=== PATIENT | male | born 1960 | race Caucasian/White ===

== ENCOUNTER 2021-11-14 11:10 | Emergency (ER) | payer MEDICARE, MEDICAID, SELFPAY ==
[2021-11-14 11:13] VITALS: BP 142/76; PULSE 90; O2SAT 99
[2021-11-14 11:32] VITALS: BP 167/97; PULSE 82; RESP 16; TEMP 37.1; O2SAT 97; BMI 47.9
[2021-11-14 11:54] LABS: IDNOW Serial# 08D9AD1C
[2021-11-14 11:55] LABS: COVID-19 Test Positive (Negative)
--- NOTE | 2021-11-14 12:01 | ED_ITS ---
HPI - General Adult General Chief complaint: Upper Respiratory Symptoms Stated complaint: COVID SYMPTOMS,COUGH Time Seen by Provider: 11/14/21 12:00 Source: patient Mode of arrival: ambulatory Limitations: no limitations History of Present Illness HPI narrative: 61 y/o male with history of GERD, HTN, HLD, obesity, depression who presents to the ER with dry cough, chills, headache and body aches for the last 2 days. He is not vaccinated for COVID-19. He has no known exposures or close contacts. He denies any shortness of breath or difficulty breathing. He has no chest pain. He does report some abdominal distention that is new. He has no nausea, vomiting, diarrhea, constipation. MD complaint: URI symptoms and abdominal distension. Onset (ago): day(s) (2) Location: back and abdomen Radiation: non-radiation Severity: moderate Quality: aching Pain Consistency: intermittent Relieving factors: none Exacerbating factors: none Associated symptoms: cough, headaches, loss of appetite, malaise and weakness Treatments prior to arrival: none Related Data Previous Rx's Medication Instructions Recorded amlodipine 5 mg tablet 5 mg PO DAILY #90 tab 07/04/21 Allergies Allergy/AdvReac Type Severity Reaction Status Date / Time lisinopril Allergy Unknown cough Verified 10/31/20 07:37 losartan Allergy Unknown cough Verified 10/31/20 07:37 penicillin V Allergy Unknown seizures Verified 10/31/20 07:37 Penicillins Allergy Unknown SEIZURES Verified 10/31/20 07:37 Review of Systems Review of Systems: Constitutional: No Fever, + Chills ENT/Mouth: + sore throat, No Rhinorrhea, No Swallowing Difficulty Cardiovascular: No Chest Pain, No SOB Respiratory: + Cough, No Sputum, No Wheezing, No dyspnea Gastrointestinal: No Nausea, No Vomiting, No Diarrhea, No abdominal Pain Musculoskeletal: + joint pain, + Myalgias Skin: No Skin Lesions, No rash Neuro: + Weakness, No Numbness, No Dizziness, + Headache Heme/Lymph: No Lymphadenopathy PMFSH Past Medical History Medical History (Updated 11/14/21 @ 12:02 by CATHY Barney) GERD (gastroesophageal reflux disease) Hypercholesterolemia Hypertension Obesity Surgical History (Updated 10/31/20 @ 07:37 by JOSEFA Genao) No pertinent past surgical history Family History Family History (Updated 10/31/20 @ 07:51 by Brandy Negron, [facility]) Father Medical history unknown Mother Diabetes Brother In good health Sister In good health Son In good health Daughter In good health Social History Social History Advance Directives: No Advance Directives Information Provided: No Physical Exam Vital Signs: Vital Signs: Last Vital Signs Temp 98.7 F 11/14/21 11:32 Pulse 82 11/14/21 11:32 Resp 16 11/14/21 11:32 BP 167/97 H 11/14/21 11:32 Pulse Ox 97 11/14/21 11:32 BMI result Body Mass Index 47.9 Appearance: Alert. Oriented X3. No acute distress. Eyes: Normal inspection ENT: Pharynx normal. Moderate posterior pharyngeal erythema without tonsillar exudate or swelling Neck: Normal inspection. Neck supple. CVS: Normal heart rate and rhythm. Pulses normal. Respiratory: No respiratory distress. Breath sounds normal. Abdomen: Softly distended and nontender. +BS x4 Skin: Skin warm and dry. Normal skin color. Normal skin turgor. No rashes. Extremities: No lower extremity edema. No calf tenderness. Neuro: Oriented X 3. Grossly normal, nonfocal ambulates with steady gait. Course Course Course Narrative: 61-year-old male with a history of obesity, HTN, HLD, GERD, depression presenting with dry cough, chills, body aches, headache. He is found to be COVID positive. On arrival he is saturating 97% on room air and afebrile. No respiratory distress and lungs are clear. Patient counseled on his diagnosis and management. Encouraged follow-up with his doctor and closely monitor symptoms at home. Strict return precautions were discussed and he is stable for [place] home for self quarantine and monitoring at home. Medical Decision Making Lab Data Labs: Lab Results 11/14/21 Range/Units 11:37 COVID-19 (ARNOLDO) Positive A (Negative) COVID-19 Clin Com See Note Discharge Plan Discharge Clinical Impression: COVID-19 Patient Disposition: Home, Self-Care Instructions: Covid-19 Viral Syndrome and Novel Coronavirus (ED) Hey/Ath Additional Instructions: You were found to be COVID-19 POSITIVE today. Your oxygen levels were normal. Rest. Drink plenty of fluids. Do not go out in public for the next 7 days. Take over the counter cold/flu medications as needed for your symptoms. Take Tylenol and/or Motrin as needed for fevers and body aches. Follow up with your doctor this week. If you develop new or worsening symptoms call 911 or come back to the ER for further evaluation. Prescriptions: No Action amlodipine 5 mg tablet 5 mg PO DAILY Qty: 90 RF: 2 Interventions: ED Discharge Assessment Last Done: 11/14/21 12:18 Discharge Date/Time: 11/14/21 12:21
== END 2021-11-14 12:21 | disposition home or self-care (01) ==
PROVIDERS: Emergency Provider Emergency Medicine; PCP Internal Medicine
DX: U07.1 COVID-19 (principal); R51.9 Headache, unspecified; R05.9 Cough, unspecified; M79.10 Myalgia, unspecified site; Z79.899 Other long term (current) drug therapy
CPT/HCPCS: 87635; 99283

== ENCOUNTER 2021-11-19 22:06 | Emergency (ER) | payer MEDICARE, MEDICAID, SELFPAY ==
--- NOTE | ~2021-11-19 | XR_ITS ---
EXAMINATION: XR CHEST CLINICAL INFORMATION: Covid positive COMPARISON: 08/29/2015 TECHNIQUE: Frontal view of the chest was obtained. FINDINGS: The lungs are well expanded. Minimal hazy opacity of the left mid to lower lung. No pleural effusion or pneumothorax. The cardiomediastinal silhouette is within normal limits. No acute osseous abnormality. XR/XR chest 1V IMPRESSION: Minimal hazy opacity of the left mid to lower lung could be infectious or inflammatory.
[2021-11-19 22:21] VITALS: BP 151/94; PULSE 101; RESP 20; TEMP 38.5; O2SAT 96
[2021-11-19 22:29] VITALS: BP 151/64; BP 158/68; PULSE 106; PULSE 99; RESP 20; TEMP 38.5; O2SAT 96; BMI 46.3
--- NOTE | 2021-11-19 22:30 | ED_ITS ---
HPI - General Adult General Chief complaint: General Medical Stated complaint: ABD PAIN. COVID + Time Seen by Provider: 11/19/21 22:30 Source: patient Mode of arrival: EMS Limitations: no limitations History of Present Illness HPI narrative: Patient not vaccinated against COVID was seen here on 11/14 for cough for 2 - 3 days tested positive for COVID comes here for body aches fever, diffuse abdominal pain with nausea worried that he lives alone saturating 96% on room air having some dry cough no vomiting Related Data Previous Rx's Medication Instructions Recorded amlodipine 5 mg tablet 5 mg PO DAILY #90 tab 07/04/21 albuterol sulfate 90 mcg/actuation 2 puff INHALATION Q4-6H PRN #8.5 g 11/19/21 aerosol inhaler (ProAir HFA) codeine 10 mg-guaifenesin 100 mg/5 10 ml PO Q6-8H PRN #237 ml NS 11/19/21 mL oral liquid dexamethasone 6 mg tablet 6 mg PO DAILY #7 tab 11/19/21 (Decadron) Allergies Allergy/AdvReac Type Severity Reaction Status Date / Time lisinopril Allergy Unknown cough Verified 10/31/20 07:37 losartan Allergy Unknown cough Verified 10/31/20 07:37 penicillin V Allergy Unknown seizures Verified 10/31/20 07:37 Penicillins Allergy Unknown SEIZURES Verified 10/31/20 07:37 Review of Systems Review of Systems: Yes all other systems are reviewed and are negative [facility] Past Medical History Medical History GERD (gastroesophageal reflux disease) Hypercholesterolemia Hypertension Obesity Surgical History No pertinent past surgical history Family History Family History Father Medical history unknown Mother Diabetes Brother In good health Sister In good health Son In good health Daughter In good health Social History Social History Advance Directives: No Advance Directives Information Provided: Yes Physical Exam Vital Signs: Vital Signs: Last Vital Signs Temp 101.3 F H 11/19/21 22:29 Pulse 105 H 11/19/21 22:36 Resp 20 11/19/21 22:29 BP 151/64 H 11/19/21 22:29 Pulse Ox 96 11/19/21 22:29 BMI result Body Mass Index 46.3 Appearance: Alert. Oriented X3. No acute distress. ENT: Pharynx normal. Oral Mucosa moist Neck: Normal inspection. Neck supple. CVS: Normal heart rate and rhythm. Pulses normal. Respiratory: No respiratory distress. Equal air entry bilateral, no wheezing/rales/rhonchi Abdomen: Soft and nontender. Bowel sounds are present, no mass palpable, Skin: Skin warm and dry. Normal skin color. Normal skin turgor. Extremities: No lower extremity edema. No calf tenderness Neuro: Oriented X 3. Medical Decision Making MDM Narrative Medical decision making narrative: Patient with COVID stable labs nonfocal exam discharge patient home. Saturating 96-98% on room air Lab Data Lab results reviewed: Yes I reviewed the patient's lab results. Result diagrams: 11/19/21 23:10 11/19/21 23:10 Labs: Lab Results 11/19/21 11/19/21 Range/Units 23:10 23:10 WBC 4.8 (4.8-10.8) X10*3/uL RBC 5.76 (4.60-5.80) X10*6/uL Hgb 14.1 (14.0-18.0) g/dl Hct 42.7 (42.0-52.0) % MCV 74.1 L (80.0-98.0) fL MCH 24.5 L (27.0-33.0) pg MCHC 33.0 (31.0-36.0) g/dl RDW 15.1 (11.0-16.0) % Plt Count 217 (160-400) X10*3/uL MPV 9.4 (9.4-12.4) fL Immature Gran % (Auto) 0.2 (0.0-0.4) % Neut % (Auto) 65.9 (45-73) % Lymph % (Auto) 24.4 (20-40) % [place] % (Auto) 9.3 (2-11) % Eos % (Auto) 0.2 (0-4) % Baso % (Auto) 0.0 (0-2) % Lymph # (Auto) 1.2 (1.2-4.9) X10*3/uL [place] # (Auto) 0.5 (0.1-1.2) X10*3/uL Eos # (Auto) 0.0 (0.0-0.4) X10*3/uL Baso # (Auto) 0.0 (0.0-0.2) X10*3/uL Abs Immat Gran (auto) 0.01 (0.00-0.03) X10*3/uL Absolute Neuts (auto) 3.2 (2.0-8.3) x10*3/uL Absolute Nucleated RBC 0.000 (0.0-0.012) X10*3/uL Nucleated RBC % (auto) 0.0 (0.0-0.2) /100WBC Sodium 137 (135-145) mmol/L Potassium 3.7 (3.3-5.1) mmol/L Chloride 105 (96-108) mmol/L Carbon Dioxide 21 L (22-29) mmol/L Anion Gap 15 (12-20) BUN 8 L (9-16) mg/dL Creatinine 0.83 (0.5-1.4) mg/dL Estim Creat Clear Calc 106.7 Estimated GFR > 60 Random Glucose 145 H (60-115) mg/dL Calcium 8.2 L (8.4-10.2) mg/dL Total Bilirubin 0.5 (0.0-1.0) mg/dL AST 53 H (5-37) U/L ALT 61 H (0-40) U/L Alkaline Phosphatase 51 (39-117) U/L Total Protein 6.4 L (6.5-8.0) g/dL Albumin 3.8 (3.5-5.0) g/dL Lipase 26 (8-78) U/L Discharge Plan Discharge Clinical Impression: COVID-19 Patient Disposition: Home, Self-Care Instructions: COVID-19 (Coronavirus Disease 2019) (ED) Additional Instructions: Drink plenty of fluids Cough syrup and inhaler as advised Decadron as advised Follow-up with PCP or report to ED if not feeling better/shortness of breath Prescriptions: New dexamethasone [Decadron] 6 mg tablet 6 mg PO DAILY Qty: 7 RF: 0 codeine-guaifenesin 10-100 mg/5 mL liquid 10 ml PO Q6-8H PRN (Reason: cough) Qty: 237 RF: 0 albuterol sulfate [ProAir HFA] 90 mcg/actuation HFA aerosol inhaler 2 puff inhalation Q4-6H PRN (Reason: Wheezing) Qty: 8.5 RF: 0 No Action amlodipine 5 mg tablet 5 mg PO DAILY Qty: 90 RF: 2
[2021-11-19 22:36] VITALS: PULSE 105; O2SAT 95
[2021-11-19] MEDS: Albuterol Sulfate 90 MCG 8 GM INHALER 4 PUFF INHALE (22:43)
[2021-11-19] MEDS: guaiFEN/Codeine SF 200/20/10ML 10 ML LIQUID PO (22:45)
[2021-11-19] MEDS: Acetaminophen 325 MG TABLET 650 MG PO (22:46)
[2021-11-19] MEDS: dexAMETHasone 6 MG TABLET PO (22:46)
[2021-11-19 23:14] LABS: MANUAL DIFF FLAG NO
[2021-11-19 23:16] LABS: Eosinophils Percent Auto 0.2 % (0-4); Hematocrit 42.7 % (42.0-52.0); Hemoglobin 14.1 g/dl (14.0-18.0); Imm Gran Abs Auto 0.01 X10*3/uL (0.00-0.03); Imm Gran Pct Auto 0.2 % (0.0-0.4); Lymphocytes Absolute Auto 1.2 X10*3/uL (1.2-4.9); Lymphocytes Percent Auto 24.4 % (20-40); Mean Corpuscular Hemoglobin 24.5 pg (27.0-33.0); Mean Corpuscular Volume 74.1 fL (80.0-98.0); Mean Platelet Volume 9.4 fL (9.4-12.4); Monocytes Absolute Auto 0.5 X10*3/uL (0.1-1.2); Monocytes Percent Auto 9.3 % (2-11); Neutrophils Absolute Auto 3.2 x10*3/uL (2.0-8.3); Neutrophils Percent Auto 65.9 % (45-73); Platelet Count 217 X10*3/uL (160-400); Red Blood Count 5.76 X10*6/uL (4.60-5.80); Red Cell Distribution Width 15.1 % (11.0-16.0); White Blood Count 4.8 X10*3/uL (4.8-10.8)
[2021-11-19 23:36] LABS: Alanine Aminotransferase 61 U/L (0-40); Albumin Level 3.8 g/dL (3.5-5.0); Alkaline Phosphatase 51 U/L (39-117); Anion Gap 15 (12-20); Aspartate Amino Transferase 53 U/L (5-37); Bilirubin Total 0.5 mg/dL (0.0-1.0); Blood Urea Nitrogen 8 mg/dL (9-16); Calcium 8.2 mg/dL (8.4-10.2); Carbon Dioxide 21 mmol/L (22-29); Chloride 105 mmol/L (96-108); Creatinine Clr Calc Pharmacy 106.7; Estimated Glomerular Filt Rate > 60; Glucose Random 145 mg/dL (60-115); Lipase 26 U/L (8-78); Potassium 3.7 mmol/L (3.3-5.1); Sodium 137 mmol/L (135-145); Total Protein 6.4 g/dL (6.5-8.0)
[2021-11-20] MEDS: Ondansetron ODT 4 MG TAB.RAPDIS TRANSLINGU (00:49)
== END 2021-11-20 00:49 | disposition home or self-care (01) ==
PROVIDERS: Emergency Provider Internal Medicine
DX: U07.1 COVID-19 (principal); R10.9 Unspecified abdominal pain; Z79.899 Other long term (current) drug therapy
CPT/HCPCS: 36415; 71045; 80053; 83690; 85025; 94640; 94664; 99284; J8540

== ENCOUNTER 2023-10-26 08:45 | Emergency (ER) | payer MEDICARE, MEDICAID, SELFPAY ==
--- NOTE | ~2023-10-26 | XR_ITS ---
EXAMINATION: XR HIP, LEFT , AP pelvis CLINICAL INFORMATION: Pain no trauma COMPARISON: None available at the time of this dictation. TECHNIQUE: Frontal and lateral views of the hip acquired. , AP pelvis FINDINGS: There is no evidence of acute fracture or dislocation. There are subtle heterogeneous sclerotic changes involving the pubic rami, femoral head and trochanters bilaterally, although could be asymmetric bone demineralization, cannot rule out possibility of diffuse sclerotic bone metastasis. There are mild degenerative arthritic changes of the hip evident by sclerotic changes of the acetabular roof and narrowing of the joint space. Mild degenerative changes of the symphysis pubis. Mild degenerative changes of the SI joints. Adjacent pubic rami are intact. Surrounding soft tissues are unremarkable. XR/XR hip LT w PEL1V IMPRESSION: There are subtle heterogeneous sclerotic changes involving the pubic rami, femoral head and trochanters bilaterally, although could be asymmetric bone demineralization, cannot rule out possibility of diffuse sclerotic bone metastasis. Consider correlation with follow-up bone scan bone scan or MRI.
--- NOTE | 2023-10-26 08:52 | ED.GENADULT ---
HPI - General Adult General Chief complaint: Extremity Injury, Lower Stated complaint: L LEG PAIN Time Seen by Provider: 10/26/23 08:46 Source: patient and EMS Mode of arrival: EMS Limitations: no limitations History of Present Illness HPI narrative: 63-year-old male with a history of obesity, hypertension, hyperlipidemia presents the ER with complaints of left hip pain x5 days. No injury or trauma. Patient reports intermittent chronic pain for many years has had cortisone injections in the past. He denies any radiation of pain. No numbness, tingling or weakness of the leg. Taking naproxen at home with continued pain Related Data Previous Rx's Medication Instructions Recorded meloxicam 15 mg tablet 15 mg PO DAILY #14 tabs 12/19/22 doxycycline hyclate 100 mg tablet 100 mg PO BID 10 days #20 tabs 01/02/23 hydrocortisone-acetic acid 1 %-2 % 4 drp otic (ear) right TID 7 days 01/02/23 ear drops #10 mL albuterol sulfate 90 mcg/actuation 2 puff PO Q4-6H PRN for wheezing 07/24/23 aerosol inhaler (Ventolin HFA) #18 ea amlodipine 5 mg tablet 5 mg PO DAILY #30 tabs 10/11/23 cyclobenzaprine 10 mg tablet 10 mg PO TID PRN muscle spasm #15 10/26/23 tabs ibuprofen 600 mg tablet 600 mg PO Q8H PRN pain #30 tabs 10/26/23 lidocaine 5 % topical patch 1 patch topical DAILY #15 ea 10/26/23 (Lidoderm) Allergies Allergy/AdvReac Type Severity Reaction Status Date / Time lisinopril Allergy Unknown cough Verified 01/02/23 10:42 losartan Allergy Unknown cough Verified 01/02/23 10:42 penicillin V Allergy Unknown seizures Verified 01/02/23 10:42 Penicillins Allergy Unknown SEIZURES Verified 01/02/23 10:42 Review of Systems Review of Systems: Yes all other systems are reviewed and are negative Constitutional: Constitutional: Reports no additional constitutional complaints, Denies body ache(s), Denies chills, Denies fever(s), Denies headache(s) and Denies weakness Eyes: Eyes: Reports no additional eye complaints and Denies change in vision ENT: Reports system reviewed and no additional complaints, except as documented, Denies dizziness, Denies headache(s), Denies nasal congestion, Denies nasal discharge and Denies neck pain Cardiovascular: Cardiovascular: Reports no additional cardiovascular complaints, Denies chest pain, Denies leg edema and Denies dyspnea Respiratory: Respiratory: Reports no additional respiratory complaints, Denies cough and Denies dyspnea Gastrointestinal: Gastrointestinal: Reports no additional gastrointestinal complaints, Denies abdominal pain, Denies diarrhea, Denies nausea and Denies vomiting Genitourinary: Genitourinary: Denies urinary incontinence Musculoskeletal: Musculoskeletal: Reports no additional musculoskeletal complaints, Denies back pain, Reports arthralgias, Denies joint swelling, Denies limited range of motion, Denies neck pain, Denies numbness and Denies tingling Integumentary/Breasts: Skin/Breast: Reports system reviewed and no additional complaints, except as docu and Denies rash Neurologic: Reports system reviewed and no additional complaints, except as documented, Denies Abnormal speech present, Denies dizziness, Denies headache(s), Denies numbness, Denies tingling and Denies weakness PMFSH Past Medical History Attestation statement: The following information was validated with the patient. Source: old records reviewed and nursing notes reviewed Medical History GERD (gastroesophageal reflux disease) Hypertension Obesity Surgical History No pertinent past surgical history Family History Family History Father Medical history unknown Mother Diabetes Brother In good health Substance abuse Bipolar 1 disorder Sister In good health Son In good health Daughter In good health Social History Social History Housing: Apartment Alcohol intake: never Patient Tobacco Use Status: Never used Tobacco e-Cigarette/Vaping Use: Never Used Second Hand Smoke Exposure: No Advance Directives: No Advance Directives Information Provided: No service: No Current occupational status: employed Cognitive needs: No Hearing needs: No Vision needs: No Physical Exam ED Vital Signs: Vital Signs - 24 hr 10/26/23 08:56 Temperature 98.3 F Pulse Rate 93 Respiratory Rate 18 Blood Pressure 165/81 H Pulse Oximetry 96 Oxygen Delivery Method Room Air BMI result Body Mass Index 48.9 Const General: cooperative, healthy appearing, comfortable and no acute distress Orientation/consciousness: patient oriented x3 Limitations: no limitations HENMT Head: Yes normal to inspection Ears: hearing grossly normal bilaterally General nose exam: Normal external nose present Face and sinus: Yes normal facial exam Mouth: Normal oral and palatal mucosa present Throat: Yes posterior oropharynx normal Eyes General: appearance normal, both eyes and all related structures Pupils: Equal, round and reactive pupils present Neck Neck: Yes normal visual inspection Chest Chest palpation & inspection: normal inspection of the chest Resp Effort & Inspection: normal respiratory effort Auscultation: clear to auscultation bilaterally Cardio Rate: regular rate Rhythm: regular rhythm Peripheral pulses: Peripheral pulses 2+ throughout GI Inspection: Yes normal to inspection Palpation (GI): Soft to palpation and nontender Auscultation: normal bowel sounds Back/Spine/Pelvis Thoracic/Lumbar Spine: thoracic and lumbar spine normal to inspection Skin General skin exam: no rashes or lesions noted Neuro General: patient oriented x3, no focal motor deficits and normal sensation to monofilament Cranial nerves: Yes Equal, round and reactive pupils present Cognition (Neuro): normal cognition Speech: No Abnormal speech present Gait exam (Neuro): Normal gait present Motor exam (neuro): 5/5 motor strength present throughout Extrem Other: Tenderness to the left lateral hip and posterior hip with no obvious shortening, rotation or deformity. Normal passive and active range of motion. Normal DP and PT pulses. Normal sensation distally. General: Yes normal to inspection Course Course Course Narrative: X-ray shows IMPRESSION: There are subtle heterogeneous sclerotic changes involving the pubic rami, femoral head and trochanters bilaterally, although could be asymmetric bone demineralization, cannot rule out possibility of diffuse sclerotic bone metastasis. Consider correlation with follow-up bone scan bone scan or MRI. Reviewed findings with Dr Mitchell (PCP). He will follow-up with the patient as an outpatient. Pain is improved with Toradol IM. Will send home with analgesia. Medications Administered Discontinued Medications Generic Name Dose Route Start Last Admin Trade Name Freq PRN Reason Stop Dose Admin Ketorolac Tromethamine 30 mg 10/26/23 09:06 10/26/23 09:23 Ketorolac Tromethamine 30 Mg/Ml Vial IM 10/26/23 09:07 30 mg ONCE ONE Administration Medical Decision Making Medical Decision Making [facility] Narrative: 63-year-old male with a history of obesity, hypertension, hyperlipidemia presents the ER with complaints of left hip pain x5 days.? No injury or trauma.? Patient reports intermittent chronic pain for many years has had cortisone injections in the past.? He denies any radiation of pain.? No numbness, tingling or weakness of the leg.? Taking naproxen at home with continued pain Tenderness to the left lateral hip and posterior hip with no obvious shortening, rotation or deformity.? Normal passive and active range of motion.? Normal DP and PT pulses.? Normal sensation distally. Will check x-rays, provide analgesia Differential Diagnosis Differential Diagnoses: The differential diagnosis associated with the presentation includes Bursitis, arthritis, osteoarthritis Low concern for septic arthritis, fracture, dislocation Admission/Observation Consideration of admission/observation: Escalation of care including admission/observation considered Pain improved with IM Toradol. Patient is ambulatory with a steady gait. No need for further emergent imaging and or admission Consult Healthcare Provider Management of the patient was discussed with: Primary Care Provider [phone]-call out to Dr MITCHELL. [phone]-Call back from Dr MITCHELL. Reviewed findings on the x-ray. He will follow-up with the patient closely outpatient Independent Interpretation I performed an independent interpretation of an: Plain X-Ray Interpretation: I independently reviewed the x-ray and agree with the radiology report Radiology Impression Discussion of test interpretation with radiology: I have reviewed the radiologist's reading. Radiologist Impression: [place] [id number] XRay Report Signed Patient: Jorge Worthington MR#: [id number] : 1960 Acct:[id number] Age/Sex: 63 / M ADM Date: 10/26/23 Loc: HO.ED Attending Dr: Ordering Physician: Bonnie Fierro NP Date of Service: 10/26/23 Procedure(s): XR hip LT w PEL1V Accession Number(s): [id number] cc: Bonnie Fierro NP~ EXAMINATION: XR HIP, LEFT , AP pelvis CLINICAL INFORMATION: Pain no trauma COMPARISON: None available at the time of this dictation. TECHNIQUE: Frontal and lateral views of the hip acquired. , AP pelvis FINDINGS: There is no evidence of acute fracture or dislocation. There are subtle heterogeneous sclerotic changes involving the pubic rami, femoral head and trochanters bilaterally, although could be asymmetric bone demineralization, cannot rule out possibility of diffuse sclerotic bone metastasis. There are mild degenerative arthritic changes of the hip evident by sclerotic changes of the acetabular roof and narrowing of the joint space. Mild degenerative changes of the symphysis pubis. Mild degenerative changes of the SI joints. Adjacent pubic rami are intact. Surrounding soft tissues are unremarkable. XR/XR hip LT w PEL1V IMPRESSION: There are subtle heterogeneous sclerotic changes involving the pubic rami, femoral head and trochanters bilaterally, although could be asymmetric bone demineralization, cannot rule out possibility of diffuse sclerotic bone metastasis. Consider correlation with follow-up bone scan bone scan or MRI. Independent Historian Clinical information obtained from an independent historian. History obtained from or confirmed by: EMS Discharge Plan Discharge Clinical Impression: Chronic hip pain Patient Disposition: Home, Self-Care Instructions: Hip Pain (ED) Additional Instructions: Your x-ray of your hip shows sclerotic changes which means that you need close follow-up outpatient with your PCP for additional imaging. We spoke to Dr MITCHELL. Please call his office on Saturday to make an appointment. Take the medications as prescribed Prescriptions: New ibuprofen 600 mg tablet 600 mg PO Q8H PRN (Reason: pain) Qty: 30 0RF cyclobenzaprine 10 mg tablet 10 mg PO TID PRN (Reason: muscle spasm) Qty: 15 0RF lidocaine [Lidoderm] 5 % adhesive patch,medicated 1 patch topical DAILY Qty: 15 0RF Rx Instructions: leave on most painful area for up to 12 hrs No Action albuterol sulfate [Ventolin HFA] 90 mcg/actuation HFA aerosol inhaler 2 puff PO Q4-6H PRN (Reason: for wheezing) Qty: 18 5RF amlodipine 5 mg tablet 5 mg PO DAILY Qty: 30 0RF meloxicam 15 mg tablet 15 mg PO DAILY Qty: 14 0RF doxycycline hyclate 100 mg tablet 100 mg PO BID 10 Days Qty: 20 0RF hydrocortisone-acetic acid 1-2 % drops 4 drp otic (ear) right TID 7 Days Qty: 10 0RF Referrals: Po,Dav Robles MD [Primary Care Provider] - 5 days Discharge Date/Time: 10/26/23 11:09
[2023-10-26 08:56] VITALS: BP 150/94; BP 165/81; PULSE 83; PULSE 93; RESP 18; TEMP 36.8; O2SAT 94; O2SAT 96; BMI 48.9
[2023-10-26] MEDS: Ketorolac Tromethamine 30 MG/ML VIAL IM (09:23)
== END 2023-10-26 11:09 | disposition home or self-care (01) ==
PROVIDERS: Emergency Provider Student in an Organized Health Care Education/Training Program; PCP Internal Medicine
DX: M25.552 Pain in left hip (principal)
CPT/HCPCS: 73502; 96372; 99284; J1885

== ENCOUNTER 2024-10-06 06:09 | Emergency (ER) | payer MEDICARE, MEDICAID, SELFPAY ==
--- NOTE | 2024-10-06 | ECG_ITS ---
Test Reason : WEAKNESS Blood Pressure : / mmHG Vent. Rate : 085 BPM Atrial Rate : 085 BPM P-R Int : 142 ms QRS Dur : 084 ms QT Int : 370 ms P-R-T Axes : 037 -68 026 degrees QTc Int : 440 ms Normal sinus rhythm Left axis deviation Abnormal ECG When compared with ECG of 29-AUG-2015 09:26, No significant change was found Referred By: Generic ED Physician Electronically Signed By:Kei Burgos
[2024-10-06 06:12] VITALS: BP 162/90; PULSE 88; O2SAT 99
[2024-10-06 06:30] VITALS: BP 154/75; PULSE 90; RESP 20; TEMP 36.8; O2SAT 97; BMI 47.5
[2024-10-06 06:58] LABS: Basophils Absolute Auto 0.1 X10*3/uL (0.0-0.2); Eosinophils Absolute Auto 0.3 X10*3/uL (0.0-0.4); Eosinophils Percent Auto 3.6 % (0-4); Hematocrit 47.1 % (42.0-52.0); Hemoglobin 15.7 g/dl (14.0-18.0); Imm Gran Abs Auto 0.04 X10*3/uL (0.00-0.03); Imm Gran Pct Auto 0.5 % (0.0-0.4); Lymphocytes Absolute Auto 1.5 X10*3/uL (1.2-4.9); Lymphocytes Percent Auto 18.5 % (20-40); MANUAL DIFF FLAG NO; Mean Corpuscular HGB Conc 33.3 g/dl (31.0-36.0); Mean Corpuscular Hemoglobin 24.8 pg (27.0-33.0); Mean Corpuscular Volume 74.5 fL (80.0-98.0); Mean Platelet Volume 9.7 fL (9.4-12.4); Monocytes Absolute Auto 0.6 X10*3/uL (0.1-1.2); Monocytes Percent Auto 7.6 % (2-11); Neutrophils Absolute Auto 5.6 x10*3/uL (2.0-8.3); Neutrophils Percent Auto 68.8 % (45-73); Platelet Count 272 X10*3/uL (160-400); Red Blood Count 6.32 X10*6/uL (4.60-5.80); Red Cell Distribution Width 14.4 % (11.0-16.0); White Blood Count 8.1 X10*3/uL (4.8-10.8)
[2024-10-06 07:17] LABS: Alanine Aminotransferase 31 U/L (0-40); Albumin Level 4.1 g/dL (3.5-5.0); Alkaline Phosphatase 59 U/L (39-117); Anion Gap 12 (12-20); Aspartate Amino Transferase 28 U/L (5-37); Bilirubin Total 0.5 mg/dL (0.0-1.0); Blood Urea Nitrogen 12 mg/dL (9-16); Calcium 9.6 mg/dL (8.4-10.2); Carbon Dioxide 23 mmol/L (22-29); Chloride 106 mmol/L (96-108); Estimated Glomerular Filt Rate > 60; Ethanol < 10 mg/dL; Glucose Random 146 mg/dL (60-115); Sodium 137 mmol/L (135-145); Total Protein 7.1 g/dL (6.5-8.0)
== END 2024-10-06 17:21 | disposition left against medical advice (07) ==
PROVIDERS: Emergency Provider Emergency Medicine Emergency Medical Services
DX: R53.1 Weakness (principal); R94.31 Abnormal electrocardiogram [ECG] [EKG]; Z51.81 Encounter for therapeutic drug level monitoring; Z79.899 Other long term (current) drug therapy
CPT/HCPCS: 36415; 80053; 80307; 85025; 93005; 99283

== ENCOUNTER → 2024-10-06 06:49 | Outpatient (BNV) | payer MEDICARE, MEDICAID, SELFPAY | PROVIDERS: Visit Provider Internal Medicine Cardiovascular Disease | DX: R94.31 Abnormal electrocardiogram [ECG] [EKG] (principal) | CPT/HCPCS: 93010 ==

== ENCOUNTER 2024-10-25 16:26 | Emergency (ER) | payer MEDICARE, MEDICAID, SELFPAY ==
[2024-10-25 16:41] VITALS: BP 146/78; BP 186/84; PULSE 106; PULSE 97; RESP 16; TEMP 36.7; O2SAT 96; O2SAT 98; BMI 48.6
--- NOTE | 2024-10-25 17:06 | ED.GENADULT ---
HPI - General Adult General Chief complaint: Dyspnea Stated complaint: HARD TIME BREATHING AFTER HAVING COVID [id number] Time Seen by Provider: 10/25/24 17:05 Source: patient Mode of arrival: ambulatory Limitations: no limitations History of Present Illness ED Provider: Dr. Jacques Raya HPI narrative: 64-year-old male with a history hypertension, asthma, GERD who presents emergency department for evaluation of shortness of breath x2 weeks. The patient states that he also has a cough which is nonproductive which is gotten worse over the past he states that over the last several days he was used his albuterol inhaler 3 times so breath. He denied fever, chills, rhinorrhea, sore throat. He states he feels short of breath at rest and has dyspnea on exertion. He denied nausea, vomiting, myalgias, arthralgias or change in his bowel movements. Related Data Previous Rx's ?Medication ?Instructions ?Recorded meloxicam 15 mg tablet 15 mg PO DAILY #14 tabs 12/19/22 doxycycline hyclate 100 mg tablet 100 mg PO BID 10 days #20 tabs 01/02/23 hydrocortisone-acetic acid 1 %-2 % 4 drp otic (ear) right TID 7 days 01/02/23 ear drops #10 mL cyclobenzaprine 10 mg tablet 10 mg PO TID PRN muscle spasm #15 10/26/23 tabs ibuprofen 600 mg tablet 600 mg PO Q8H PRN pain #30 tabs 10/26/23 lidocaine 5 % topical patch 1 patch topical DAILY #15 ea 10/26/23 (Lidoderm) amlodipine 5 mg tablet 5 mg PO DAILY #90 tabs 04/15/24 albuterol sulfate 90 mcg/actuation 2 puff PO Q4-6H PRN for wheezing 10/07/24 aerosol inhaler (Ventolin HFA) #18 ea doxycycline hyclate 100 mg tablet 100 mg PO Q12H 5 days #10 tabs 10/25/24 prednisone 20 mg tablet 60 mg (3 x 20 mg) PO DAILY 5 days 10/25/24 #15 tabs Allergies Allergy/AdvReac Type Severity Reaction Status Date / Time lisinopril Allergy Unknown cough Verified 10/25/24 16:50 losartan Allergy Unknown cough Verified 10/25/24 16:50 penicillin V Allergy Unknown seizures Verified 10/25/24 16:50 Penicillins Allergy Unknown SEIZURES Verified 10/25/24 16:50 Review of Systems Review of Systems: Yes all other systems are reviewed and are negative [facility] Past Medical History [facility] Narrative: Social history: He denies tobacco use. He denies alcohol use. He denies drug use. Medical History GERD (gastroesophageal reflux disease) Hypertension Obesity Surgical History No pertinent past surgical history Family History Family History Father Medical history unknown Mother Diabetes Brother In good health Substance abuse Bipolar 1 disorder Sister In good health Son In good health Daughter In good health Social History Social History Housing: Apartment Alcohol intake: never Patient Tobacco Use Status: Never used Tobacco Smoked in Last 30 Days: No e-Cigarette/Vaping Use: Never Used Second Hand Smoke Exposure: No Use of substances other than those prescribed or required for medical reasons: No Advance Directives: No Advance Directives Information Provided: No Do you have a plan to hurt others: No Plan service: No Current occupational status: employed Cognitive needs: No Hearing needs: No Vision needs: No Physical Exam ED Vital Signs: Vital Signs - 24 hr 10/25/24 16:41 10/25/24 17:33 Temperature 98.1 F 97.9 F Pulse Rate 97 87 Respiratory Rate 16 16 Blood Pressure 186/84 H 140/89 H Pulse Oximetry 96 98 Oxygen Delivery Method Room Air Room Air BMI result Body Mass Index 48.6 Vital signs revealed an elevated blood pressure of 186/84 otherwise unremarkable. Exam: General: Awake, alert in no distress Head: Normocephalic, atraumatic EENT: PERRL, Lids normal, sclera normal, conjunctiva normal, nose normal , ears normal, throat without erythema or exudates Neck: Supple, no adenopathy Lung: breath sounds symmetric, no wheezing, rales or rhonchi Chest: symmetric movement, nontender Heart: regular rate and rhythm, normal S1, S2 no murmurs or rubs Abdomen: soft, non-tender, nondistended, normal bowel sounds Back: no vertebral tenderness, no CVAT Extremities: no deformities, moves all extremities symmetrically Neuro: Awake, alert, oriented, normal speech, cranial nerves intact, moves all extremities symmetrically Psych: Pleasant, cooperative Medications Administered Discontinued Medications Generic Name Dose Route Start Last Admin Trade Name Anais PRN Reason Stop Dose Admin Doxycycline Monohydrate 100 mg 10/25/24 17:16 10/25/24 17:21 Doxycycline Monohydrate 100 Mg Capsule PO 10/25/24 17:17 100 mg ONCE ONE Administration Prednisone 60 mg 10/25/24 17:16 10/25/24 17:21 Prednisone 20 Mg Tablet PO 10/25/24 17:17 60 mg ONCE ONE Administration Medical Decision Making Medical Decision Making MDM Narrative: 64-year-old male with a history hypertension, asthma, GERD who presents emergency department for evaluation of dyspnea on exertion, cough and shortness of breath which is gotten worse over the past 2 weeks, not responding to his albuterol inhaler. Review of systems was unremarkable. Vital signs revealed an elevated blood pressure. Physical examination was normal. Differential diagnosis: ?Includes but is not limited to pneumonia, bronchitis, asthma exacerbation, viral syndrome Course: Patient was treated with doxycycline 100 mg orally and prednisone 60 mg orally. He was given prescription for doxycycline 100 mg b.i.d. for 5 days and prednisone 60 mg b.i.d. for 5 days. He was given printed and verbal instructions discharged home Admission/Observation Consideration of admission/observation: Escalation of care including admission/observation considered (No) Prescription Management I considered prescription management with: Antibiotic and Other (Anti-inflammatory steroids: Prednisone) Chronic Conditions Patient?s care impacted by: Hypertension and Other (Asthma) Discharge Plan Discharge Clinical Impression: Acute bronchitis, Asthma exacerbation Patient Disposition: Home, Self-Care Instructions: Acute Bronchitis (ED) Additional Instructions: Your symptoms are consistent with bronchitis which is infection or inflammation of your breathing tubes. Take prednisone 20 mg pills, 3 pills once a day for 5 days. While you ?are taking prednisone, do not take any NSAIDs (Motrin, Advil, ibuprofen, Aleve, naproxen). He was in Prescriptions: New prednisone 20 mg tablet 60 mg PO DAILY 5 Days Qty: 15 0RF doxycycline hyclate 100 mg tablet 100 mg PO Q12H 5 Days Qty: 10 0RF No Action amlodipine 5 mg tablet 5 mg PO DAILY Qty: 90 1RF albuterol sulfate [Ventolin HFA] 90 mcg/actuation HFA aerosol inhaler 2 puff PO Q4-6H PRN (Reason: for wheezing) Qty: 18 5RF ibuprofen 600 mg tablet 600 mg PO Q8H PRN (Reason: pain) Qty: 30 0RF cyclobenzaprine 10 mg tablet 10 mg PO TID PRN (Reason: muscle spasm) Qty: 15 0RF lidocaine [Lidoderm] 5 % adhesive patch,medicated 1 patch topical DAILY Qty: 15 0RF Rx Instructions: leave on most painful area for up to 12 hrs meloxicam 15 mg tablet 15 mg PO DAILY Qty: 14 0RF doxycycline hyclate 100 mg tablet 100 mg PO BID 10 Days Qty: 20 0RF hydrocortisone-acetic acid 1-2 % drops 4 drp otic (ear) right TID 7 Days Qty: 10 0RF Interventions: ED Discharge Assessment Last Done: 10/25/24 17:33 Discharge Date/Time: 10/25/24 17:34 Print Language: Lao
[2024-10-25] MEDS: Doxycycline Monohydrate 100 MG CAPSULE PO (17:21)
[2024-10-25] MEDS: predniSONE 20 MG TABLET 60 MG PO (17:21)
[2024-10-25 17:33] VITALS: BP 140/89; PULSE 87; RESP 16; TEMP 36.6; O2SAT 98
== END 2024-10-25 17:34 | disposition home or self-care (01) ==
PROVIDERS: Emergency Provider Emergency Medicine Emergency Medical Services; PCP Internal Medicine
DX: J45.901 Unspecified asthma with (acute) exacerbation (principal); R06.02 Shortness of breath; R05.9 Cough, unspecified; Z79.899 Other long term (current) drug therapy
CPT/HCPCS: 99284

== ENCOUNTER 2024-11-12 09:05 | Outpatient (AMB) | payer MEDICARE, MEDICAID, SELFPAY ==
[2024-11-12 09:45] VITALS: BP 142/80; PULSE 92; O2SAT 96; BMI 46.1
--- NOTE | 2024-11-12 09:45 | MHC.PC.OV ---
Vital Signs 11/12/24 09:45 11/12/24 10:18 Height 5 ft 3 in Weight 260 lb BMI 46.1 BP 142/80 H 136/80 Blood Pressure Location Lt brachial Lt brachial Position Sitting Sitting Pulse 92 Pulse Source Pulse Oximeter Pulse Oximetry (%) 96 Oxygen Delivery Method Room Air Intake Visit Reasons: Left Leg Pain Follow Up Allergies lisinopril Allergy (Unknown, Verified 11/12/24 09:45) cough losartan Allergy (Unknown, Verified 11/12/24 09:45) cough penicillin V Allergy (Unknown, Verified 11/12/24 09:45) seizures Penicillins Allergy (Unknown, Verified 11/12/24 09:45) SEIZURES Tobacco use date assessed: 11/12/24 Dental Screening Dental Screen Date: 11/12/24 Did you have a dental visit in the last 12 months?: No Did you have a dental problem in the last 6 months where you did not have access to dental care?: No Was dental information given to patient?: No HPI Left Leg Pain Follow Up HPI Details The patient is a 64-year-old male presenting with a follow-up for his chronic conditions, including essential hypertension, gastroesophageal reflux disease, major depressive disorder, hypercholesterolemia, dyspnea, and obesity. His last visit was in November 2022. Since then, he reported an ER visit in October for dyspnea, during which he was provided an inhaler. Blood work from the ER visit indicated a high blood glucose level of 146 mg/dL, and he was not fasting at the time. He denied anemia, as his blood count was normal. The patient experiences alternating periods of weakness and sleepiness without snoring, impacting his daily life. There are sclerotic changes on his left hip, but these were not a concern during this visit. He is not receiving treatment specific to obesity, although discussed lifestyle adjustments include increasing exercise and improving diet. He drinks about seven bottles of 16-ounce water daily and wakes twice at night to urinate. He denies depression currently but previously had a history of major depressive disorder and now receives support from a telephonic nurse case manager at [facility]. His dietary habits include relatively low fried food consumption, yet he experiences weight challenges. The patient resides in a neighborhood impacting his well-being and desires to change his living environment. The patient's last colonoscopy was over a decade ago, and colon cancer screening is pending. COUNT INCLUDES [facility] Medical History (Updated 11/12/24 @ 10:29 by Dav Manzanares MD) Hypersomnia Otitis media Otitis externa GERD (gastroesophageal reflux disease) Hypertension Obesity Surgical History No pertinent past surgical history Family History Father Medical history unknown Mother Diabetes Brother In good health Substance abuse Bipolar 1 disorder Sister In good health Son In good health Daughter In good health Social History Housing: Apartment Alcohol intake: never Patient Tobacco Use Status: Never used Tobacco Tobacco use type: Cigarette e-Cigarette/Vaping Use: Never Used Second Hand Smoke Exposure: No service: No Current occupational status: employed Cognitive needs: No Hearing needs: No Vision needs: Yes Questionnaire PHQ-9 Over the last 2 weeks, how often have you been bothered by any of the following problems? 1. Little interest or pleasure in doing things: several days 2. Feeling down, depressed, or hopeless: nearly every day 3. Trouble falling or staying asleep, or sleeping too much: nearly every day 4. Feeling tired or having little energy: nearly every day 5. Poor appetite or overeating: nearly every day 6. Feeling bad about yourself - or that you are a failure or have let yourself or your family down: nearly every day 7. Trouble concentrating on things, such as reading the newspaper or watching television: nearly every day 8. Moving or speaking so slowly that other people could have noticed. Or the opposite - being so fidgety or restless that you have been moving around a lot more than usual: nearly every day 9. Thoughts that you would be better off or of hurting yourself in some way: not at all Total score: 22 Depression Screening Interpretation: Positive Depression Screening Done: Yes 50368 - PHQ-9 Billing: Yes Source: Developed by Drs. Shaggy Dee, Lindsey Chiu, David Davis and colleagues, with an educational azra from [employer]. Thrive Questionnaire Date Thrive assessed: 11/12/24 I am a: Patient What is your living situation today?: I have a steady place to live Within the past 12 months, did the food you bought not last and you didn't have the money to get more?: Never true Within the past 12 months, did you worry whether your food would run out before you got money to buy more?: Never true Do you have trouble paying for medicines?: No Do you have trouble getting transportation to medical appointments?: No Do you have trouble paying your heating and electricity bill?: No Do you have trouble taking care of your child, family member or friend?: No Do you have trouble with day-to-day activities such as bathing, preparing meals, shopping, managing finances, etc.?: No Are you currently unemployed and looking for a job?: No Are you interested in more education?: No Currently or been in a relationship where the following occur: No concerns reported THRIVE Score: 0 AUDIT C Alcohol Use Questionnaire (AUDIT-C) 1. How often do you have a drink containing alcohol?: Monthly or less 2. How many drinks containing alcohol do you have on a typical day when you are drinking?: 1 or 2 3. How often do you have six or more drinks on one occasion?: Never Total Score: 1 THAI-7 AMB Questionnaire THAI-7 Date THAI - 7 assessed: 11/12/24 Feeling nervous, anxious, or on edge: 1 = Several days Not being able to stop or control worryin = Several days Worrying too much about different things: 1 = Several days Trouble relaxin = Several days Being so restless that it is hard to sit still: 1 = Several days Becoming easily annoyed or irritable: 1 = Several days Feeling afraid as if something awful might happen: 1 = Several days Total THAI-7 score (0-4 normal; 5-9 mild; 10-14 moderate; 15-21 severe): 7 Source: Developed by Drs. Shaggy Dee, Lindsey Chiu, David Davis and colleagues, with an educational azra from [employer]. THAI-7 Assessment Billing THAI-7 Assessment Tool: THAI-7 Assessment 53628 Physical exam (Primary Care) Vital Signs: Last Vital Signs Pulse 92 11/12/24 09:45 BP 136/80 11/12/24 10:18 Pulse Ox 96 11/12/24 09:45 Oxygen Delivery Method Room Air 11/12/24 09:45 BMI result Body Mass Index 46.1 Tobacco/Smoking Status: Tobacco use Status Tobacco use date assessed 11/12/24 11/12/24 09:47 Patient Tobacco Use Status Never used Tobacco 11/12/24 09:47 Tobacco use type Cigarette 11/12/24 09:47 e-Cigarette/Vaping Use Never Used 11/12/24 09:47 PHQ-9: PHQ-9 Score PHQ-9: Total score 22 11/12/24 10:06 Depression Screening Interpretation: Positive Thrive Assessment: Date of Thrive Assessment Date Thrive assessed 11/12/24 11/12/24 09:47 Currently or been in a relationship where the following occur: No concerns reported Const General: alert; No acute distress Eyes Conjunctivae: conjunctivae normal Resp Auscultation: clear to auscultation bilaterally Cardio Rate: regular rate Rhythm: regular rhythm GI Inspection: Yes normal to inspection Extrem General: Yes normal to inspection and No edema Coding Level of Care Code Est Pt Level 4 (53743) Complex EM visit Add On G2211 Diagnoses Colon cancer screening Z12.11 Hypertension I10 Morbid obesity E66.01 Elevated blood sugar R73.9 Left hip pain M25.552 Hypersomnia G47.10 Additional Codes THAI-7 Assessment Billing - THAI-7 Assessment Tool: THAI-7 Assessment 80482 ([id number]) PHQ-9 - 16644 - PHQ-9 Billing: Yes ([id number]) Assessment & Plan Assessment & Plan (1) Colon cancer screening: Comment: declined 11/2024 Code(s): Z12.11 - Encounter for screening for malignant neoplasm of colon Category: Medical Plan: declined 11/2024 (2) Hypertension: Code(s): I10 - Essential (primary) hypertension Category: Medical (3) Morbid obesity: Code(s): E66.01 - Morbid (severe) obesity due to excess calories Category: Medical (4) Elevated blood sugar: Code(s): R73.9 - Hyperglycemia, unspecified Category: Medical (5) Left hip pain: Code(s): M25.552 - Pain in left hip Category: Medical (6) Hypersomnia: Code(s): G47.10 - Hypersomnia, unspecified Category: Medical Plan - For Essential Hypertension, continue current antihypertensive medication and consider acquiring a home blood pressure monitoring device for regular monitoring. - For Gastroesophageal Reflux Disease, provide dietary and lifestyle modification recommendations to manage symptoms. Avoid trigger foods and utilize medication as necessary. - For Major Depressive Disorder, continue support services through [facility] and monitor for any resurgence of symptoms. - Monitor Hypercholesterolemia and evaluate if lifestyle modification is sufficient or if medical therapy is required. - Address Dyspnea with continued use of the inhaler and proceed with an ultrasound and hepatitis profile due to liver enzyme elevation to evaluate a potential fatty liver issue. - Address Obesity with lifestyle modifications to include increased physical activity and dietary adjustments. Discuss the possible risks and the need for weight reduction to alleviate comorbid conditions. - Schedule sleep apnea evaluation through a home sleep study due to reports of daytime somnolence and fatigue. - Conduct fasting blood glucose and A1c tests to assess for diabetes given the elevated blood glucose levels. - Encourage follow-up colonoscopy for colon cancer screening due to the overdue status. - Consider a tetanus vaccination update and discuss flu vaccine, especially with the ongoing flu season and other respiratory viruses like COVID-19 and RSV. - Provide advice on dietary improvements, emphasizing increased water intake, rabbit food-like meals rich in nutrients, avoidance of high cholesterol foods, and emphasizing the importance of fiber-rich breakfast such as oatmeal. Orders: Orders Complete Blood Count Auto Diff Today R73.9 - Hyperglycemia, unspecified Comprehensive Met. Panel Today R73.9 - Hyperglycemia, unspecified Vitamin B12 and Folate Today R73.9 - Hyperglycemia, unspecified Hemoglobin A1c Today R73.9 - Hyperglycemia, unspecified Reticulocyte Count Today R73.9 - Hyperglycemia, unspecified Hepatitis B,C Profile Today R73.9 - Hyperglycemia, unspecified, R79.89 - Other specified abnormal findings of blood chemistry Free T4 (Free Thyroxine) Today R73.9 - Hyperglycemia, unspecified Thyroid Stimulating Hormone Today R73.9 - Hyperglycemia, unspecified Ferritin Today R73.9 - Hyperglycemia, unspecified IRON PROFILE Today R73.9 - Hyperglycemia, unspecified Lipid Panel Today E78.00 - Pure hypercholesterolemia, unspecified, R73.9 - Hyperglycemia, unspecified Prostate Specific Antigen Scr Today R73.9 - Hyperglycemia, unspecified US abdomen complete Today R73.9 - Hyperglycemia, unspecified, R79.89 - Other specified abnormal findings of blood chemistry RT home sleep study Today G47.10 - Hypersomnia, unspecified
[2024-11-12 10:18] VITALS: BP 136/80
== END 2024-11-12 10:33 | disposition home or self-care (01) ==
PROVIDERS: PCP Internal Medicine; Visit Provider Internal Medicine
DX: I10 Essential (primary) hypertension (principal); E66.01 Morbid (severe) obesity due to excess calories; Z68.42 Body mass index [BMI] 45.0-49.9, adult; Z12.11 Encounter for screening for malignant neoplasm of colon; R73.9 Hyperglycemia, unspecified; M25.552 Pain in left hip; G47.10 Hypersomnia, unspecified

== ENCOUNTER → 2024-11-12 09:05 | Outpatient (BNVA) | payer MEDICARE, MEDICAID, SELFPAY | PROVIDERS: PCP Internal Medicine; Visit Provider Internal Medicine | DX: I10 Essential (primary) hypertension (principal); E66.01 Morbid (severe) obesity due to excess calories; R73.9 Hyperglycemia, unspecified; M25.552 Pain in left hip; G47.10 Hypersomnia, unspecified | CPT/HCPCS: 96127; 99212 ==

== ENCOUNTER 2025-03-17 06:53 | Emergency (ER) | payer MEDICARE, MEDICAID, SELFPAY ==
[2025-03-17 06:57] VITALS: BP 164/82; PULSE 88; O2SAT 98
[2025-03-17 07:01] VITALS: BP 165/95; PULSE 85; RESP 16; TEMP 36.7; O2SAT 96; BMI 45.7
--- NOTE | 2025-03-17 07:52 | ED_ITS ---
HPI - Dental/Oral General Chief complaint: Dental/Oral Stated complaint: dental pain Time Seen by Provider: 03/17/25 07:48 Source: patient Mode of arrival: ambulatory Limitations: no limitations History of Present Illness HPI Narrative: This is a very pleasant 65 years old male presented to the emergency department with a chief complaint of tooth pain pain he has been going on for few days he has an appointment with the dentist on April 02, he denies any fever chills vomiting Location: Tooth # (31) Onset (ago): day(s) Severity: moderate Relieving factors: nothing Exacerbating factors: nothing Context: history of dental caries Treatment prior to arrival: none Related Data Previous Rx's ?Medication ?Instructions ?Recorded amlodipine 5 mg tablet 5 mg PO DAILY #90 tabs 01/04/25 albuterol sulfate 90 mcg/actuation 2 puff PO Q4-6H PRN for wheezing 03/05/25 aerosol inhaler (Ventolin HFA) #18 ea clindamycin HCl 300 mg capsule 300 mg PO TID #21 caps 03/17/25 oxycodone 5 mg tablet 5 mg PO Q6H PRN pain #15 tabs 03/17/25 Allergies Allergy/AdvReac Type Severity Reaction Status Date / Time lisinopril Allergy Unknown cough Verified 03/17/25 07:04 losartan Allergy Unknown cough Verified 03/17/25 07:04 penicillin V Allergy Unknown seizures Verified 03/17/25 07:04 Penicillins Allergy Unknown SEIZURES Verified 03/17/25 07:04 Review of Systems Constitutional: Constitutional: Reports no additional constitutional complaints ENT: Reports system reviewed and no additional complaints, except as documented Cardiovascular: Cardiovascular: Reports no additional cardiovascular complaints [facility] Past Medical History [facility] Narrative: Hypertension Medical History Hypersomnia Otitis media Otitis externa GERD (gastroesophageal reflux disease) Hypertension Obesity Surgical History No pertinent past surgical history Family History Family History Father Medical history unknown Mother Diabetes Brother In good health Substance abuse Bipolar 1 disorder Sister In good health Son In good health Daughter In good health Social History Social History Housing: Apartment Alcohol intake: never Patient Tobacco Use Status: Never used Tobacco Tobacco use type: Cigarette e-Cigarette/Vaping Use: Never Used Second Hand Smoke Exposure: No Advance Directives: No Advance Directives Information Provided: Yes service: No Current occupational status: employed Cognitive needs: No Hearing needs: No Vision needs: Yes Physical Exam Vital Signs: Vital Signs: Last Vital Signs Temp 98.1 F 03/17/25 08:11 Pulse 85 03/17/25 08:11 Resp 16 03/17/25 08:11 BP 165/95 H 03/17/25 08:11 Pulse Ox 96 03/17/25 08:11 O2 Del Method Room Air 03/17/25 08:11 BMI result Body Mass Index 45.7 Patient looks well is not toxic-appearing comfortable Const: General: cooperative Nutritional Appearance: obese Orientation/consciousness: patient oriented x3 HEENT: Head: Yes normal to inspection Ears: hearing grossly normal bilaterally Face and sinus: Yes normal facial exam Mouth: Normal oral and palatal mucosa present Teeth and gingiva: poor dentition and other (Fracture tooth 31) Neck: Neck: Yes normal visual inspection Chest: Chest palpation & inspection: normal inspection of the chest Resp: Effort & Inspection: normal respiratory effort Cardio: Jugular venous distension: no JVD Rate: regular rate Rhythm: regular rhythm GI: Inspection: Yes normal to inspection Palpation (GI): Soft to palpation, not firm and nontender Percussion: Yes normal to percussion Auscultation: normal bowel sounds Skin: General skin exam: no rashes or lesions noted Lesions: no lesions Rashes: no rashes Wounds: no wounds Neuro: General: patient oriented x3 Extrem: General: Yes normal to inspection and Yes full ROM Left upper extremity: normal to inspection Right lower extremity: normal to inspection Medical Decision Making Medical Decision Making MDM Narrative: Patient presented complaining of tooth ache no clinical evidence of abscess, no facial swelling I think he can go home on antibiotic and pain medicine Differential Diagnosis Differential Diagnoses: The differential diagnosis associated with the presentation includes Toothache /abscess/cellulitis Admission/Observation Consideration of admission/observation: Escalation of care including admission/observation considered Prescription Management I considered prescription management with: Pain Medication and Antibiotic Discharge Plan Discharge Clinical Impression: Tooth ache Patient Disposition: Home, Self-Care Instructions: Toothache (ED) Additional Instructions: Follow-up with a dentist take antibiotic as directed, take pain medicine as directed return if worse Prescriptions: New clindamycin HCl 300 mg capsule 300 mg PO TID Qty: 21 0RF oxycodone 5 mg tablet 5 mg PO Q6H PRN (Reason: pain) Qty: 15 0RF Rx Instructions: partial filing upon pt request; Partial Fill upon patient request. No Action amlodipine 5 mg tablet 5 mg PO DAILY Qty: 90 1RF albuterol sulfate [Ventolin HFA] 90 mcg/actuation HFA aerosol inhaler 2 puff PO Q4-6H PRN (Reason: for wheezing) Qty: 18 5RF Interventions: ED Discharge Assessment Last Done: 03/17/25 08:11 Discharge Date/Time: 03/17/25 08:11 Print Language: Mongolian
[2025-03-17 08:11] VITALS: BP 165/95; PULSE 85; RESP 16; TEMP 36.7; O2SAT 96
== END 2025-03-17 08:11 | disposition home or self-care (01) ==
PROVIDERS: Emergency Provider Emergency Medicine; PCP Internal Medicine
DX: K08.89 Other specified disorders of teeth and supporting structures (principal)
CPT/HCPCS: 99282; 99283